=== PATIENT | male | born 1995 | race Caucasian/White ===

== ENCOUNTER → 2022-07-18 13:43 | Outpatient (BNVA) | payer OTHER, SELFPAY | PROVIDERS: PCP Hospitalist; Visit Provider Urology | DX: Z13.89 Encounter for screening for other disorder (principal) ==

== ENCOUNTER 2022-09-12 15:48 | Outpatient (REF) | payer OTHER, SELFPAY ==
--- NOTE | ~2022-09-12 | US_ITS ---
EXAMINATION: US SCROTUM CLINICAL INFORMATION: Left testicular pain. COMPARISON: Ultrasound scrotum 12/01/2014. TECHNIQUE: A sonogram of the scrotum was performed assessing sol-scale appearance and color Doppler flow. Spectral Doppler analysis of the arterial and venous flow were performed in the testes bilaterally. FINDINGS: RIGHT: Right testicle measures 4.4 x 2.1 x 2.6 cm, volume 12.5 mL. No focal testicular parenchymal lesions are visualized. Spectral Doppler analysis of the arterial and venous flow is normal in the right testis. Right epididymal head is normal in size. 3 x 2 x 2 mm right epididymal head cyst. No right hydrocele is seen. Right varicocele. Right epididymal Doppler flow is normal. LEFT: Left testicle measures 3.6 x 2.2 x 3.0 cm, volume 12.2 mL. No focal testicular parenchymal lesions are visualized. Spectral Doppler analysis of the arterial and venous flow is normal in the left testis. Left epididymal head is normal in size. No left hydrocele is seen. Left varicocele. Left epididymal Doppler flow is normal. US/US scrotum doppler IMPRESSION: Bilateral varicoceles. Small right epididymal head cyst.
== END 2022-09-12 15:49 | disposition home or self-care (01) ==
LOC: HO.US 15:48
PROVIDERS: PCP Hospitalist; Visit Provider Urology
DX: N50.812 Left testicular pain (principal); N50.89 Other specified disorders of the male genital organs
CPT/HCPCS: 93975

== ENCOUNTER 2022-09-22 15:35 | Outpatient (AMB) | payer OTHER, SELFPAY ==
--- NOTE | 2022-09-22 15:38 | MHC.OFFVIS ---
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 He taken Tylenol and uses heating pad to manage the symptoms. Scrotal US results reviewed?09/12/22-- Bilateral varicoceles. Small right epididymal head cyst. Review of chart: LV?07/18/22-- Red is a 26-year-old male who presents to the office as a new patient evaluation for varicocele. The patient is a 26-year-old gentleman who is here due to left testicular pain. he states that he was diagnosed with varicocele at the age of 14 years. He states that the pain has been increasing in intensity and frequency since March 2022. He has tried Tylenol, Motrin, and ice pack which helped minimally. He is using cannabis, has a medical card for anxiet. He has two children, six and four year old. Does not have any other prescribed medications. Denies history of STD and has normal urine stream. Evaluation today: Blood: negative, leukocytes: negative. Scrotal exam: Grade 3 varicocele on the left of the testicle. No masses were palpated. Plan: Scrotal US was ordered. Follow-up with Dr. Santos to discuss varicocele repair. 09/22/22--Evaluation/UA: Blood-- negative, leukocytes: negative. Plan: Follow-up with Dr. Santos. [facility] Medical History No known health problems Family History Paternal Grandfather Hypertension Hyperlipidemia Alcoholism Clotting disorder Cardiovascular disease Paternal Grandmother No problems noted. Mother Cancer Social History Housing: House (with family) Patient Tobacco Use Status: Never used Tobacco e-Cigarette/Vaping Use: Never Used Current occupational status: employed Review of Systems Const All systems reviewed & are unremarkable except as noted in HPI and below Reports no additional complaints Eyes Reports no additional complaints ENT Denies neck pain Card Denies leg edema Resp Denies cough GI Denies constipation Musc Reports no additional complaints and Denies neck pain Skin/Breast Denies rash and Denies unusual bruising Neuro Reports no additional complaints Psych Reports no additional complaints Endo Reports no additional complaints Henry/Lymph Reports no additional complaints Aller/Immun Reports no additional complaints Results AMB Urinalysis, Automated UA Leukoctes 0 Larry/uL Last Edit by JANNETTE La on 09/22/22 16:01 UA Nitrite Negative Last Edit by Kenna Kevin [facility] on 09/22/22 16:01 UA Urobilinogen 0.2 mg/dL Last Edit by Kenna Kevin [facility] on 09/22/22 16:01 UA Protein 0 mg/dL Last Edit by Kenna Kevin [facility] on 09/22/22 16:01 UA pH 7.0 Last Edit by Kenna Kevin [facility] on 09/22/22 16:01 UA Blood 0 Jorje/uL Last Edit by Kenna Kevin [facility] on 09/22/22 16:01 UA Specific [place] 1.015 Last Edit by Kenna Kevin [facility] on 09/22/22 16:01 UA Ketone Negative Last Edit by Kenna Kevin [facility] on 09/22/22 16:01 UA Bilirubin 0 mg/dL Last Edit by Kenna Kevin [facility] on 09/22/22 16:01 UA Glucose 0 mg/dL Last Edit by Kenna Kevin [facility] on 09/22/22 16:01 Results Reviewed Results Reviewed: Laboratory Last Values Urine pH (Auto) 7.0 09/22/22 15:38 Specific [place] (Auto) 1.015 09/22/22 15:38 Urine Protein (Auto) 0 mg/dL 09/22/22 15:38 Glucose (UA)(Auto) 0 mg/dL 09/22/22 15:38 Urine Ketones (Auto) Negative 09/22/22 15:38 Urine Blood (Auto) 0 Jorje/uL 09/22/22 15:38 Urine Nitrite (Auto) Negative 09/22/22 15:38 Urine Bilirubin (Auto) 0 mg/dL 09/22/22 15:38 Urine Urobilinogen (Auto) 0.2 mg/dL 09/22/22 15:38 Leukocyte Esterase (Auto) 0 Larry/uL 09/22/22 15:38 Date of Service: 09/12/22 EXAMINATION: US SCROTUM CLINICAL INFORMATION: Left testicular pain. COMPARISON: Ultrasound scrotum 12/01/2014. TECHNIQUE: A sonogram of the scrotum was performed assessing sol-scale appearance and color Doppler flow. Spectral Doppler analysis of the arterial and venous flow were performed in the testes bilaterally. FINDINGS: RIGHT: Right testicle measures 4.4 x 2.1 x 2.6 cm, volume 12.5 mL. No focal testicular parenchymal lesions are visualized. Spectral Doppler analysis of the arterial and venous flow is normal in the right testis. Right epididymal head is normal in size. 3 x 2 x 2 mm right epididymal head cyst. No right hydrocele is seen. Right varicocele. Right epididymal Doppler flow is normal. LEFT: Left testicle measures 3.6 x 2.2 x 3.0 cm, volume 12.2 mL. No focal testicular parenchymal lesions are visualized. Spectral Doppler analysis of the arterial and venous flow is normal in the left testis. Left epididymal head is normal in size. No left hydrocele is seen. Left varicocele. Left epididymal Doppler flow is normal. IMPRESSION: Bilateral varicoceles. Small right epididymal head cyst. Assessment & Plan Assessment & Plan (1) Left varicocele: Code(s): I86.1 - Scrotal varices (2) Left testicular pain: Code(s): N50.812 - Left testicular pain (3) Scrotal swelling: Code(s): N50.89 - Other specified disorders of the male genital organs Plan Follow-up with Dr. Santos. Orders: Orders AMB Urinalysis Automated 09/22/22 Z13.9 - Encounter for screening, unspecified Patient Instructions: The patient had an opportunity to ask questions regarding treatment plan. All questions were answered. Imaging, Laboratory studies and physical exam results were discussed and reviewed in detail. No major barriers to understanding were identified. The patient expressed understanding and agreement with the above treatment plan. The patient is aware they should contact our office by phone for worsening of their current condition or the appearance of new symptoms. Compliance is encouraged with any medications and followup testing that is ordered. It is a privilege to be allowed the opportunity to participate in the urologic care of your patient. If you have any questions or concerns regarding treatment for the above conditions please do not hesitate to contact me. The office telephone contact is [phone]. This note is constructed in part using voice recognition software. While every effort has been made to ensure accuracy welding machine operator gas metal arc errors may have been included. Yours sincerely, Trupti Wolf MD Coding Level of Care Code Est Pt Level 3 (41473) Diagnoses Left varicocele I86.1 Left testicular pain N50.812 Scrotal swelling N50.89
== END 2022-09-22 16:21 | disposition home or self-care (01) ==
PROVIDERS: PCP Hospitalist; Visit Provider Urology
DX: I86.1 Scrotal varices (principal); N50.812 Left testicular pain; N50.89 Other specified disorders of the male genital organs
CPT/HCPCS: 99213

== ENCOUNTER → 2022-09-22 15:35 | Outpatient (BNVA) | payer OTHER, SELFPAY | PROVIDERS: PCP Hospitalist; Visit Provider Urology ==

== ENCOUNTER 2022-10-14 15:22 | Outpatient (AMB) | payer OTHER, SELFPAY ==
--- NOTE | 2022-10-14 15:31 | A.OFFVIS_ITS ---
Intake Intake Visit Reasons: F/U with Dr. Santos to discuss varicocele repair. Intake Note: Patient is present for Follow Up Variocele repair Urology Med: None Antibiotic Allergy: None Blood Thinner: None Allergies No Known Allergies [No Known Allergies*] Allergy (Verified 10/14/22 15:32) HPI HPI Comments History of Present Illness Details Red is a pleasant male. He is a patient Dr. Puri. He is seen for the following urologic conditions - varicocele Discussion today regarding varicocelectomy left side Interested in concomitant vasectomy Varicocele Longstanding left varicocele initially diagnosed age 14 Has intermittent pain which can be quite severe Grade 3 varicocele on ultrasound Easily palpable in office Also 2 children Currently Interested in vasectomy These can performed concurrently PFS Medical History No known health problems Family History Paternal Grandfather Hypertension Hyperlipidemia Alcoholism Clotting disorder Cardiovascular disease Paternal Grandmother No problems noted. Mother Cancer Social History Housing: House (with family) Patient Tobacco Use Status: Never used Tobacco e-Cigarette/Vaping Use: Never Used Current occupational status: employed Review of Systems Const Denies chills and Denies fever(s) Card Reports no additional complaints and Denies syncope Resp Denies cough GI Denies abdominal pain and Denies heartburn Reports as per HPI and Denies change in libido Neuro Denies syncope Psych Denies change in libido Endo Denies change in libido Physical Exam Const General: cooperative, healthy appearing, comfortable and no acute distress Orientation/consciousness: patient oriented x3 HEENT Face and sinus: Yes normal facial exam Mouth: moist mucous membranes Neck Neck: Yes normal visual inspection, Yes full ROM and Yes trachea midline Chest Chest palpation & inspection: normal inspection of the chest Resp Effort & Inspection: normal respiratory effort, able to speak in complete sentences and no respiratory distress GI Inspection: Yes normal to inspection Back/Spine/Pelvis Cervical Spine: normal cervical lordosis Thoracic/Lumbar Spine: thoracic and lumbar spine normal to inspection Skin General skin exam: no rashes or lesions noted Neuro General: patient oriented x3, gait normal, tone normal and moves all extremities Extrem General: Yes normal to inspection and Yes capillary refill normal Assessment & Plan Assessment & Plan (1) Left varicocele: Code(s): I86.1 - Scrotal varices (2) Anxiety about health: Code(s): F41.8 - Other specified anxiety disorders Plan Risks, benefits and alternatives to therapy were discussed. These include but are not limited to infection, bleeding, damage to local organs and tissues, need for further interventions. Anesthetic risks regarding cardiac arrhythmia, blood clots, and potential mortality were discussed. The patient understands the typical recovery time and the outpatient nature of the procedure. After consideration of these risks the patient gives full informed consent and they wish to move ahead with the procedure. Left varicocelectomy microscopic with concomitant bilateral vasectomy Patient Instructions: Imaging studies, laboratory and physical exam results were discussed and reviewed in detail. No major barriers to patient understanding were identified. An opportunity to ask questions regarding the treatment plan was provided. All questions were answered. The patient expressed understanding and agreement with the above treatment plan. The patient is aware they should contact our office by phone for worsening of their current condition or the appearance of new urologic symptoms. Compliance is encouraged with any medications and followup testing that is ordered. It is a privilege to participate in the urologic care of your patient. If you have any questions or concerns regarding treatment for the above conditions, or other urologic issues, please do not hesitate to contact me. The office telephone contact is [phone]. This note is constructed using voice recognition software. While every effort has been made to ensure accuracy childcare attendant errors may have been included. Yours sincerely, Dr Carlos Santos MD, [facility] - Urology Providers of Expert, Compassionate Care for the Genitourinary System Coding Level of Care Code Est Pt Level 4 (18289) Diagnoses Left varicocele I86.1 Anxiety about health F41.8
== END 2022-10-14 15:52 | disposition home or self-care (01) ==
PROVIDERS: PCP Hospitalist; Visit Provider Urology
DX: I86.1 Scrotal varices (principal); F41.8 Other specified anxiety disorders
CPT/HCPCS: 99214

== ENCOUNTER → 2022-10-14 15:22 | Outpatient (BNVA) | payer OTHER, SELFPAY | PROVIDERS: PCP Hospitalist; Visit Provider Urology ==

== ENCOUNTER 2022-12-22 08:29 | Day surgery (SDC) | payer OTHER, SELFPAY ==
[2022-12-18 10:40] VITALS: BMI 25.2
--- NOTE | 2022-12-19 12:00 | HO.ANESPROP2 ---
Documented by User: Rashmi Rouse NP 12/19/22 12:01 HPI - Anesthesia Eval Consult details Narrative: 27yo M for Left Variocelectomy, Bilateral Vasectomy PMFSH Active Problems Active Problems: All Active Problems (Updated 12/18/22 @ 10:38 by Treasure Stuart, AVELINA) Anxiety about health (Acute) Left varicocele (Acute) Scrotal swelling (Acute) Left testicular pain (Acute) Pain in both testicles (Acute) Hydrocele in adult (Acute) Hernia (Acute) Abnormal physical finding (Acute) Past Medical History Medical History (Updated 12/22/22 @ 09:09 by Anila Perez MD) Bilateral varicoceles Anxiety Family History Family History Paternal Grandfather Hypertension Hyperlipidemia Alcoholism Clotting disorder Cardiovascular disease Paternal Grandmother No problems noted. Mother Cancer Surgical History Surgical History Surgical history unknown Social History Social History (Updated 12/22/22 @ 09:03 by Anila Perez MD) Housing: House (with family) Patient Tobacco Use Status: Former Tobacco user Quit Date: 11 yrs ago e-Cigarette/Vaping Use: Never Used Current occupational status: employed Meds Allergies Allergy/AdvReac Type Severity Reaction Status Date / Time No Known Allergies Allergy Verified 10/14/22 15:32 [No Known Allergies*] Home Medications Medication Instructions Recorded Confirmed Last Taken Type No Known Home Meds 06/03/22 12/18/22 Unknown History Exam Exam Date and Time: December 19, 2022 1200 Height,Weight and Vital Signs: Height 6 ft Weight 84.368 kg Assessment and Plan Assessment Anesthesia Assessment: Chart Reviewed Documented by User: Anila Perez MD 12/22/22 09:10 HPI - Anesthesia Eval Consult details Narrative: 27yo M for Left Varicocelectomy, Bilateral Vasectomy PMFSH Active Problems Active Problems: All Active Problems (Updated 12/22/22 @ 08:53 by Anila Perez MD) Anxiety about health (Acute)- uses marijuana for anxiety. Last used about 7am this morning (12/22/22) Bilateral varicocele (Acute) Scrotal swelling (Acute) Pain in both testicles (Acute) Hernia (Acute) Abnormal physical finding (Acute) Past Medical History Medical History (Updated 12/22/22 @ 09:09 by Anila Perez MD) Bilateral varicoceles Anxiety Family History Family History Paternal Grandfather Hypertension Hyperlipidemia Alcoholism Clotting disorder Cardiovascular disease Paternal Grandmother No problems noted. Mother Cancer Family history of problems with anesthesia: No Surgical History Surgical History Surgical history unknown History of Problems with Anesthesia: No (Never had anesthesia) Social History Social History (Updated 12/22/22 @ 09:03 by Anila Perez MD) Housing: House (with family) Patient Tobacco Use Status: Former Tobacco user Quit Date: 11 yrs ago e-Cigarette/Vaping Use: Never Used Current occupational status: employed Meds Allergies Allergy/AdvReac Type Severity Reaction Status Date / Time No Known Allergies Allergy Verified 10/14/22 15:32 [No Known Allergies*] Home Medications Medication Instructions Recorded Confirmed Last Taken Type No Known Home Meds 06/03/22 12/18/22 Unknown History Exam Height,Weight and Vital Signs: Height 6 ft Weight 84.368 kg Vital Signs Temp Pulse Resp BP Pulse Ox O2 Del Method 12/22/22 08:54 97.4 F 52 15 141/77 H 99 Room Air Airway Mallampati Class: I TM Dist: >3cm Neck ROM: Full Loose/Missing/Broken Teeth: No (Denies broken, loose, missing teeth) Heart: RRR Lungs: CTAB Assessment and Plan Assessment Anesthesia Assessment: Anesthesia Plan Discussed Final Anesthetic Review Family History of Problems with Anesthesia: No History of Problems with Anesthesia: No (Never had anesthesia) NPO: Yes ASA Class: II Final Preanesthetic Review: No Changes in Pt Med Stat, Meds/Allgs Chart Reviewed, Consent Obtained/Reviewed and Anes Risks/Benef Reviewed Patient Risk: Low Procedure Risk: Low Assessment/Block/Sedation in SS: Assess/Block/Sedation-SS Anesthetic Plan Anesthetic Plan: GA Disposition: Standard PACU
[2022-12-22 08:54] VITALS: BP 141/77; PULSE 52; RESP 15; TEMP 36.3; O2SAT 99
[2022-12-22] MEDS: Lactated Ringers 1,000 ML 100 ML IVCONT (09:00)
--- NOTE | 2022-12-22 09:42 | MHC.SHP ---
Pre-Procedural Eval Section A Date of Service: 12/22/22 The patient is an INPATIENT: No Changes since office visit: No Cold of Flu in the past 2 weeks, No New Medical Problems, No Changes in Medication and No Patient answered all questions The History & Physical has been completed within 30 days and I have reviewed it.: Yes Section B Chief Complaint: Scrotal varices,vasectomy Allergies: Allergies Allergy/AdvReac Type Severity Reaction Status Date / Time No Known Allergies Allergy Verified 10/14/22 15:32 [No Known Allergies*] Plan Diagnosis/Plan: Unchanged ( microscopic left varicocelectomy with vasectomy) I have reviewed the history and physical and performed a pertinent physical examination on my patient. No changes have occurred unless specified. Time Spent With Patient Time: Total time managing care of this patient today ____ minutes.
[2022-12-22 11:39] VITALS: BP 154/82; PULSE 66; RESP 14; TEMP 36.4; O2SAT 98
[2022-12-22 11:40] VITALS: BP 152/95; PULSE 40; RESP 15; O2SAT 98
--- NOTE | 2022-12-22 11:40 | P.OP_ITS ---
Operative Note Operative Note Date of Service: 12/22/22 Narrative: PreOperative Diagnosis: Left varicocele with testicular pain and, anxiety about health regarding reproduction Post Operative Diagnosis: Same Procedure: 1.) Left microscopic varicocelectomy 2.) Vasectomy Surgeon: Dr Carlos Santos Anesthesia: General Indications for procedure: Persistent left testicular pain with varicocele. Was offered microscopic subinguinal varicocelectomy. Understands this is 90% successful and primary risk is loss of testicle. Procedure: After informed consent was verified the patient was brought to the operating room and placed in a supine position. Anesthesia was administered per protocol. The patient was shaved and prepped and draped in a sterile fashion. Safety pause time-out was performed. Antibiotics had been given. The left inguinal canal was palpated. This was marked and then a 4 cm incision was marked approximately 1 cm distal to the inguinal canal. The skin was infiltrated with local anesthetic. Using a 15 blade skin was incised and dissection was performed in the subcutaneous tissue. Dissection was performed until inguinal cord was isolated. The cord was delivered through the incision to the skin surface using a [place]. A tongue depressor was then used to elevate the cord from the incision. The operating microscope was brought into place. Dissection was then performed on the cord. Muscle fibers surrounding the cord were all dissected. This was performed using bipolar cautery and scissors. The overlying tissue was removed and the cord packets exposed. Fascia was cauterized and dissected from the packet. The vas deferens packet was dissected and tagged with a vessel loop. Multiple large veins were seen coursing through the cremasteric muscle layer and perivasal tissue space. These were gently dissected clear. Using 4-0 silk ties each vessel was ligated proximally and distally before being divided. Care was taken to leave feeding arterial vessels intact. Doppler ultrasound was available to assist with identification. The testicular artery was identified. The perivasal artery was identified. Approximately 8 major vessels were identified and divided. The vas deferens was dissected free. Cautery was used to divide the vas deferens and a small segment was removed. The proximal and was also cauterized. A fascial interposition suture using 3-0 Vicryl was placed. When this was complete the cord was examined. The tongue depressor was removed and the cord allowed to sit in its normal position. The area was irrigated with saline. Reapproximation of deep tissue was performed using interrupted 3-0 Vicryl. Skin was reapposed using a 4-0 running Monocryl. Incisions were closed with Dermabond Attention was directed to the right scrotum. The vas deferens was palpated and isolated using 3 finger technique. Local anesthetic was infiltrated along the vas. Using the spreading instrument skin overlying the vas was divided and spread. A ring forcep was then used to deliver the vas from the incision. Once delivered the basal sheath was divided using cautery. The vas was isolated using pickups. A section of the vas was then freed from surrounding vessels. The vas was divided both proximally and distally and a small section sent for pathology. The proximal section was cauterized. A fascial interposition suture using 3-0 Vicryl was placed. The vas was released back into the scrotum and a clamp placed in order to seal the puncture wound. He tolerated the procedure well and was extubated in operating room and transferred in stable condition to the recovery area. Pathology - vasal specimens
[2022-12-22 11:45] VITALS: BP 156/95; PULSE 43; RESP 15; O2SAT 99
[2022-12-22 11:55] VITALS: BP 154/85; PULSE 48; RESP 16; O2SAT 99
[2022-12-22] MEDS: Acetaminophen 325 MG TABLET 975 MG PO (12:04)
[2022-12-22] MEDS: traMADoL HCL 50 MG TABLET PO (12:05)
[2022-12-22 12:10] VITALS: BP 162/99; PULSE 46; RESP 16; TEMP 36.4; O2SAT 99
== END 2022-12-22 14:40 | disposition home or self-care (01) ==
PROVIDERS: PCP Hospitalist; Visit Provider Urology
PROC: (CPT 55550; principal; 2022-12-22 10:20)
PROC: (CPT 55250; 2022-12-22 10:20)
DX: I86.1 Scrotal varices (principal); N50.82 Scrotal pain; F41.8 Other specified anxiety disorders; N50.89 Other specified disorders of the male genital organs; Z87.891 Personal history of nicotine dependence
CPT/HCPCS: 55550; 55250; 88302; J1956; J2405; J2795; J3010

== ENCOUNTER → 2022-12-22 08:29 | Outpatient (BNV) | payer OTHER, SELFPAY | PROVIDERS: PCP Hospitalist; Visit Provider Urology | DX: I86.1 Scrotal varices (principal); Z30.2 Encounter for sterilization | CPT/HCPCS: 55250; 55530 ==

== ENCOUNTER 2023-01-21 13:21 | Outpatient (AMB) | payer OTHER, SELFPAY ==
--- NOTE | 2023-01-21 13:38 | MHC.OFFVIS ---
Intake Intake Visit Reasons: 4 week (varicocelectomy) Intake Note: Patient is Present for Follow Up Urology Medication:None Antibiotic Allergies:None Blood Thinners:None Allergies No Known Allergies [No Known Allergies*] Allergy (Verified 01/21/23 13:41) HPI HPI Comments History of Present Illness Details Red is a pleasant male. He is a patient Dr. Puri. He is seen for the following urologic conditions - varicocele Follow-up from varicocelectomy Significant improvement in discomfort Vasectomy performed concurrently Two month follow-up semen analysis Varicocele Longstanding left varicocele initially diagnosed age 14 Has intermittent pain which can be quite severe Grade 3 varicocele on ultrasound Easily palpable in office Also 2 children Currently Interested in vasectomy These can performed concurrently [facility] Medical History Bilateral varicoceles Anxiety Surgical History Surgical history unknown Family History Paternal Grandfather Hypertension Hyperlipidemia Alcoholism Clotting disorder Cardiovascular disease Paternal Grandmother No problems noted. Mother Cancer Social History Housing: House (with family) Patient Tobacco Use Status: Former Tobacco user Quit Date: 11 yrs ago e-Cigarette/Vaping Use: Never Used Current occupational status: employed Review of Systems Const Denies chills and Denies fever(s) Card Reports no additional complaints and Denies syncope Resp Denies cough GI Denies abdominal pain and Denies heartburn Reports as per HPI and Denies change in libido Neuro Denies syncope Psych Denies change in libido Endo Denies change in libido Physical Exam Const General: cooperative, healthy appearing, comfortable and no acute distress Orientation/consciousness: patient oriented x3 HEENT Face and sinus: Yes normal facial exam Mouth: moist mucous membranes Neck Neck: Yes normal visual inspection, Yes full ROM and Yes trachea midline Chest Chest palpation & inspection: normal inspection of the chest Resp Effort & Inspection: normal respiratory effort, able to speak in complete sentences and no respiratory distress GI Inspection: Yes normal to inspection Back/Spine/Pelvis Cervical Spine: normal cervical lordosis Thoracic/Lumbar Spine: thoracic and lumbar spine normal to inspection Skin General skin exam: no rashes or lesions noted Neuro General: patient oriented x3, gait normal, tone normal and moves all extremities Extrem General: Yes normal to inspection and Yes capillary refill normal Assessment & Plan Assessment & Plan (1) Left varicocele: Code(s): I86.1 - Scrotal varices (2) Anxiety about health: Code(s): F41.8 - Other specified anxiety disorders Plan Two month follow-up Patient Instructions: Imaging studies, laboratory and physical exam results were discussed and reviewed in detail. No major barriers to patient understanding were identified. An opportunity to ask questions regarding the treatment plan was provided. All questions were answered. The patient expressed understanding and agreement with the above treatment plan. The patient is aware they should contact our office by phone for worsening of their current condition or the appearance of new urologic symptoms. Compliance is encouraged with any medications and followup testing that is ordered. It is a privilege to participate in the urologic care of your patient. If you have any questions or concerns regarding treatment for the above conditions, or other urologic issues, please do not hesitate to contact me. The office telephone contact is [phone]. This note is constructed using voice recognition software. While every effort has been made to ensure accuracy belt back operator errors may have been included. Yours sincerely, Dr Carlos Santos MD, [facility] - Urology Providers of Expert, Compassionate Care for the Genitourinary System Coding Level of Care Code Est Pt Level 3 (36441) Diagnoses Left varicocele I86.1 Anxiety about health F41.8
== END 2023-01-21 14:12 | disposition home or self-care (01) ==
PROVIDERS: PCP Hospitalist; Visit Provider Urology
DX: I86.1 Scrotal varices (principal); F41.8 Other specified anxiety disorders
CPT/HCPCS: 99024

== ENCOUNTER → 2023-01-21 13:21 | Outpatient (BNVA) | payer OTHER, SELFPAY | PROVIDERS: PCP Hospitalist; Visit Provider Urology ==